=== PATIENT | male | born 1985 | race Caucasian/White ===

== ENCOUNTER → 2018-07-06 | Outpatient (CLI) | payer BC ==
--- NOTE | 2018-07-06 11:32 | KCIC ---
MRI Lumbar Spine without contrast History: Low back pain for a couple of months greater on the left Technique: Multiplanar, multi sequential noncontrast MR imaging was performed of the lumbar spine. Comparison: None Findings: Lumbar vertebral body stature and AP alignment are within normal limits. Intervertebral disc spaces are maintained. Conus terminates at L1. There is no significant marrow edema. 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 There is tiny hemangioma of the right L1 vertebral body. L3-L4: Neural foramina and spinal canal are adequate. L4-L5: Neural foramina and spinal canal are adequate. L5-S1: Spinal canal and neural foramina are adequate. Impression: 1. There is no lumbar spinal stenosis or neural foramina compromise. Electronically signed by: Jamaal Flores MD (07/06/2018 11:29 AM) [id number]
== END | disposition home or self-care (01) ==
LOC: KCIC MRI 10:30 → EDSEX 10:30
PROVIDERS: ATTEND Family Medicine
DX: M54.5 Low back pain (principal); R29.898 Other symptoms and signs involving the musculoskeletal system
CPT/HCPCS: 72148